=== PATIENT | male | born 1970 | race Caucasian/White ===

== ENCOUNTER → 2017-07-15 | Day surgery (SDC) | payer OTHER ==
[~2017-07-15] MED LIST: IV RINGERS SOLUTION,LACTATED 1,000 ML IV ONE; LIDOCAINE 2% PF Vial for OR 5 ML VIAL. ONE; PROPOFOL 20 ML IV ONE
== END | disposition home or self-care (01) ==
LOC: SURG 07:53
PROVIDERS: ATTEND Internal Medicine Gastroenterology
DX: K21.0 Gastro-esophageal reflux disease with esophagitis (principal)
CPT/HCPCS: 43239; J2704; J3010; J7120; J2001

== ENCOUNTER → 2017-10-07 | Day surgery (SDC) | payer OTHER ==
[~2017-10-07] MED LIST changes: +FISH12002 PO; +IV RINGERS SOLUTION,LACTATED 1,000 ML BAG. IV ONE; +IV RINGERS SOLUTION,LACTATED 1,000 ML IV SCH; +MULT-245 PO; +PANT40TA5 PO
[2017-10-07 08:54] VITALS: BP 109/71
== END | disposition home or self-care (01) ==
LOC: SURG 07:01
PROVIDERS: ATTEND Internal Medicine Gastroenterology
DX: K21.0 Gastro-esophageal reflux disease with esophagitis (principal); Z98.890 Other specified postprocedural states
CPT/HCPCS: 43235; J2704; J3010; J7120; J2001